=== PATIENT | female | born 1960 | race Caucasian/White ===

== ENCOUNTER 2017-10-23 07:30 | Emergency (ER) | payer OTHER ==
[2017-10-23] MEDS: IBUPROFEN 800 MG TAB PO (08:14)
== END 2017-10-23 08:57 | disposition home or self-care (01) ==
LOC: M ED 07:30
DX: S80.02XA Contusion of left knee, initial encounter (principal); W01.0XXA Fall on same level from slipping, tripping and stumbling without subsequent striking against object, initial encounter; Y92.018 Other place in single-family (private) house as the place of occurrence of the external cause; M17.12 Unilateral primary osteoarthritis, left knee
CPT/HCPCS: 73564

== ENCOUNTER → 2018-06-26 | Outpatient (REF) | payer OTHER | LOC: M LAB REF 16:12 | DX: R30.0 Dysuria (principal) | CPT/HCPCS: 87186 ==

== ENCOUNTER → 2018-08-19 | Outpatient (CLI) | payer OTHER | LOC: M WUC 09:23 | DX: J20.9 Acute bronchitis, unspecified (principal) | CPT/HCPCS: 71046 ==

== ENCOUNTER → 2018-12-06 | Outpatient (CLI) | payer OTHER ==
[~2018-12-06] MED LIST: IBUP80TA PO
--- NOTE | 2018-12-06 08:48 | REP ---
Clinical: Cough and fever. Technique: PA and lateral. Comparison: 08/19/2018. Findings: [id number] left lower lobe consolidation with air bronchograms consistent with acute pneumonia. No obvious effusion. No pneumothorax. Mediastinum and cardiac silhouette normal. Skeletal structures intact. Impression: Left lower lobe consolidation consistent with acute pneumonia. Follow-up to resolution recommended. Electronically Signed by Migue Reid MD 12/06/2018 08:39 A
== END ==
LOC: M WUC 08:20
PROVIDERS: ATTEND Physician Assistant
DX: R05 Cough (principal); R50.9 Fever, unspecified

== ENCOUNTER → 2019-01-07 | Outpatient (CLI) | payer OTHER ==
--- NOTE | 2019-01-07 16:55 | REP ---
Chest two views HISTORY: Left lower lobe pneumonia Comparison: 12/06/2018 There has been resolution of the previously noted left lower lobe infiltrate. The lungs are clear. The heart is normal in size. The pulmonary vasculature is normal in appearance. The bony structure is intact. IMPRESSION: No acute disease. Electronically Signed by Glenn De Leon MD 01/07/2019 04:46 P
== END ==
LOC: M WUC 16:12
PROVIDERS: ATTEND Nurse Practitioner Adult Health
DX: Z87.01 Personal history of pneumonia (recurrent) (principal)

== ENCOUNTER → 2019-05-29 | Outpatient (REF) | payer OTHER | LOC: M LAB REF 09:29 | PROVIDERS: ATTEND Physician Assistant | DX: J00 Acute nasopharyngitis [common cold] (principal) ==

== ENCOUNTER → 2019-10-22 | Outpatient (CLI) | payer OTHER ==
[~2019-10-22] MED LIST changes: +E-Z-GAS II EFFERVESCENT PACKET (SODIUM BICARB./CITRIC ACID/SIMETHICONE) As Ordered ONE; +E-Z-HD 98% w/w 340GM SUSP BTL As Ordered ONE; +E-Z-PAQUE 96% w/w SUSP 176GM BTL As Ordered ONE
--- NOTE | 2019-10-22 15:20 | REP ---
Esophagram The procedure was performed under the direct supervision of Dr. Joy. The images were reviewed with Dr. Joy. A single view PA chest x-ray is submitted as a curtain drier film. The superior mediastinal structures are midline. The heart size is within normal limits. The lungs are clear. Liquid barium and gas producing granules were given in the erect position as well as liquid barium in the prone oblique positions in order to perform a double contrast esophagram examination. The oral and pharyngeal stages of deglutition are unremarkable. Esophageal transport is prompt and efficient and there is no esophagitis, stricture or mucosal ring. There is a sliding type hiatal hernia. There is gastroesophageal reflux demonstrated to the level of the misty. Impression: There is a sliding type hiatal hernia. There is gastroesophageal reflux demonstrated to the level of the misty. 0.7 minutes of fluoro time was utilized for this procedure. Electronically Signed by JALEN Sifuentes 10/22/2019 03:07 P Electronically Signed by Duke Joy MD 10/22/2019 03:11 P
== END ==
LOC: M RAD 08:02
PROVIDERS: ATTEND Nurse Practitioner
DX: R13.10 Dysphagia, unspecified (principal)

== ENCOUNTER 2019-11-11 09:41 | Day surgery (SDC) | payer OTHER ==
[~2019-11-11] VITALS: Ht 177.8 cm; Wt 112.5 kg
[~2019-11-11 09:41] MED LIST changes: -E-Z-GAS II EFFERVESCENT PACKET (SODIUM BICARB./CITRIC ACID/SIMETHICONE) As Ordered ONE; -E-Z-HD 98% w/w 340GM SUSP BTL As Ordered ONE; -E-Z-PAQUE 96% w/w SUSP 176GM BTL As Ordered ONE; +LIDOCAINE 2% INJ 100 MG/5 ML SDV (FOR ANES.) As Ordered ONE; +NS 1,000 ML IV ONE; +propofoL 200 MG/20 ML VIAL As Ordered ONE
[2019-11-11] MEDS ORDERED: NEXI20CA PO (10:15)
--- NOTE | 2019-11-11 10:57 | ROOR ---
Patient Name: Radha Kinsey Procedure Date: 11/11/2019 10:38 AM Date of : 1960 Age: 59 Room: [facility] Gender: Female Note Status: Finalized Procedure: Upper GI endoscopy Indications: Dysphagia, Heartburn Providers: Morro Fay Jr, MD Referring MD: Jadon Spence MD Requesting Provider: Medicines: Propofol per Anesthesia Complications: No immediate complications. Procedure: Pre-Anesthesia Assessment: - Prior to the procedure, a History and Physical was performed, and patient medications and allergies were reviewed. The patient is competent. The risks and benefits of the procedure and the sedation options and risks were discussed with the patient. All questions were answered and informed consent was obtained. Patient identification and proposed procedure were verified by the physician and the nurse in the pre-procedure area and in the procedure room. Mental Status Examination: alert and oriented. Airway Examination: normal oropharyngeal airway and neck mobility. Respiratory Examination: clear to auscultation. CV Examination: normal. ASA Grade Assessment: II - A patient with mild systemic disease. After reviewing the risks and benefits, the patient was deemed in satisfactory condition to undergo the procedure. The anesthesia plan was to use moderate sedation / analgesia (conscious sedation). Immediately prior to administration of medications, the patient was re-assessed for adequacy to receive sedatives. The heart rate, respiratory rate, oxygen saturations, blood pressure, adequacy of pulmonary ventilation, and response to care were monitored throughout the procedure. The physical status of the patient was re-assessed after the procedure. The Endoscope was introduced through the mouth, and advanced to the second part of duodenum. The upper GI endoscopy was accomplished without difficulty. The patient tolerated the procedure well. Findings: The upper third of the esophagus, middle third of the esophagus and lower third of the esophagus were normal. A medium-sized hiatal hernia was present. Mildly severe esophagitis with no bleeding was found at the gastroesophageal junction. Biopsies were taken with a cold forceps for histology. Patchy moderate inflammation characterized by congestion (edema), friability and granularity was found in the prepyloric region of the stomach. The cardia, gastric fundus, gastric body and pylorus were normal. The duodenal bulb, first portion of the duodenum and second portion of the duodenum were normal. Impression: - Normal upper third of esophagus, middle third of esophagus and lower third of esophagus. - Medium-sized hiatal hernia. - Mildly severe reflux esophagitis. Rule out Hollis's esophagus. Biopsied. - Gastritis. - Normal cardia, gastric fundus, gastric body and pylorus. - Normal duodenal bulb, first portion of the duodenum and second portion of the duodenum. Recommendation: - Discharge patient to home (ambulatory). - Return to my office in 2 weeks. Morro Fay MD Morro Fay Jr, MD 11/11/2019 10:56:56 AM Electronically signed by Morro Fay Jr, MD Number of Addenda: 0 Note Initiated On: 11/11/2019 10:38 AM Estimated Blood Loss: Estimated blood loss: none.
[2019-11-11 11:14] VITALS: BP 149/69
== END 2019-11-11 11:15 | disposition home or self-care (01) ==
LOC: M OPP 09:41
PROVIDERS: ATTEND Surgery
DX: R13.10 Dysphagia, unspecified (principal); R12 Heartburn; K21.0 Gastro-esophageal reflux disease with esophagitis; K29.70 Gastritis, unspecified, without bleeding; D13.1 Benign neoplasm of stomach; K44.9 Diaphragmatic hernia without obstruction or gangrene; Z79.899 Other long term (current) drug therapy

== ENCOUNTER → 2020-06-21 | Outpatient (CLI) | payer OTHER ==
[~2020-06-21] MED LIST changes: -LIDOCAINE 2% INJ 100 MG/5 ML SDV (FOR ANES.) As Ordered ONE; +NEXI20CA PO; -NS 1,000 ML IV ONE; -propofoL 200 MG/20 ML VIAL As Ordered ONE
--- NOTE | 2020-06-26 10:27 | REP ---
DATE: 06/21/2020 LEFT SHOULDER SERIES CLINICAL: Pain. Contusion. TECHNIQUE: Internal rotation, external rotation and wide view of the left shoulder. FINDINGS: Acromioclavicular and glenohumeral joints are intact. There was no evidence for cute fracture with dislocation. Subacromial space is normal. No significant arthritic changes appreciated. IMPRESSION: Normal left shoulder radiographs. MTDD
--- NOTE | 2020-06-26 10:28 | REP ---
DATE: 06/21/2020 LEFT RIB SERIES CLINICAL: Contusion. TECHNIQUE: Frontal view of the chest with 4 views of the left hemithorax. FINDINGS: Frontal view of the chest demonstrates no acute cardiopulmonary process. Multiple views of the left hemithorax demonstrate no obvious acute left rib fracture or pathology. IMPRESSION: Normal left rib series. MTDD
== END ==
LOC: M WUC 10:23
PROVIDERS: ATTEND Physician Assistant
DX: S20.212A Contusion of left front wall of thorax, initial encounter (principal); S43.82XA Sprain of other specified parts of left shoulder girdle, initial encounter; X58.XXXA Exposure to other specified factors, initial encounter; Y92.89 Other specified places as the place of occurrence of the external cause

== ENCOUNTER → 2022-11-04 | Outpatient (CLI) | payer OTHER | LOC: M WUC 14:29 | PROVIDERS: ATTEND Physician Assistant Medical | DX: M25.511 Pain in right shoulder (principal) ==

== ENCOUNTER → 2022-12-31 | Outpatient (CLI) | payer OTHER | LOC: M SLEEP 20:00 | PROVIDERS: ATTEND Internal Medicine Pulmonary Disease | DX: G47.33 Obstructive sleep apnea (adult) (pediatric) (principal) ==

== ENCOUNTER → 2023-06-23 | Outpatient (CLI) | payer OTHER ==
[2023-06-23 18:44] LABS: THYROID STIMULATING HORMONE 1.425 uIU/ML (0.55-4.78); THYROXINE (T4) 9.9 UG/DL (4.5-10.9)
[2023-06-23 18:45] LABS: FREE T4 1.05 NG/DL (0.89-1.76)
== END ==
LOC: M WUC 13:19
PROVIDERS: ATTEND Internal Medicine Cardiovascular Disease
DX: R00.2 Palpitations (principal)

== ENCOUNTER 2023-11-20 07:38 | Day surgery (SDC) | payer OTHER ==
[~2023-11-20] VITALS: Ht 177.8 cm; Wt 102.5 kg
[~2023-11-20 07:38] MED LIST changes: +CITA20TA6 PO; +NS 1,000 ML IV ONE; +PRIL20TA2 PO
[2023-11-20] MEDS ORDERED: propofoL 500 MG/50 ML VIAL As Ordered ONE (09:06)
[2023-11-20 09:09] VITALS: TEMP 97.2
[2023-11-20 09:27] VITALS: BP 116/57; O2SAT 98
== END 2023-11-20 09:40 | disposition home or self-care (01) ==
LOC: M OPP 07:38
PROVIDERS: ATTEND Surgery
DX: Z12.11 Encounter for screening for malignant neoplasm of colon (principal); D12.6 Benign neoplasm of colon, unspecified; K21.00 Gastro-esophageal reflux disease with esophagitis, without bleeding; K22.70 Barrett's esophagus without dysplasia; G47.30 Sleep apnea, unspecified; Z99.89 Dependence on other enabling machines and devices; Z79.899 Other long term (current) drug therapy